=== PATIENT | female | born 1955 | race Hispanic/Latino ===

== ENCOUNTER 2019-05-12 18:53 | Inpatient (IN) | payer MEDICAID | END 2019-05-16 12:45 | disposition home or self-care (01) | LOC: EDH 18:53 → 4CH 05-13 07:58 → EDHIP 21:30 | DX: I20.0 Unstable angina (principal); N17.9 Acute kidney failure, unspecified; R18.8 Other ascites; E11.65 Type 2 diabetes mellitus with hyperglycemia; E87.5 Hyperkalemia; K74.60 Unspecified cirrhosis of liver; B19.20 Unspecified viral hepatitis C without hepatic coma; N18.9 Chronic kidney disease, unspecified; R19.5 Other fecal abnormalities; I12.9 Hypertensive chronic kidney disease with stage 1 through stage 4 chronic kidney disease, or unspecified chronic kidney disease ==